=== PATIENT | female | born 1990 | race African-American/Black ===

== ENCOUNTER 2016-11-29 23:15 | Emergency (ER) | payer MEDICAID ==
[~2016-11-29] VITALS: Ht 177.8 cm; Wt 87.1 kg
[~2016-11-29 23:15] MED LIST: AUGMENTIN 875-1 EAC1 ORAL; CIPROFLOXACIN500 M2 ORAL; IBUPROFEN800 MG ORAL; KEFLEX500 MG ORAL; LEVOTHYROXINE25 MCG ORAL; NKM; PNV-OB WITH DH1 EACH PO; ZOFRAN ODT4 MG ORAL
[2016-11-30] VITALS: BP 110/62
--- NOTE | 2016-11-30 00:32 | Emergency Room Report ---
History of Present Illness General Chief Complaint: Flu Like Symptoms Source: Patient Present Illness HPI Sore throat and L ear pain 2 days. Mininal cough, not productive. Pain is 5/10 , sharp in throat and aching in body, constant. L eye with redness and some crusting 1 day. No photophobia. No treatment. Has arthritis and therefore more body pain. Daughter with viral diarrhea. No NVD, dysuria, not . Allergies: Coded Allergies: No Known Allergies (Unverified , 11/07/13) Patient History Past Medical History: see triage record Social History: Reports: smoking Social History Narrative with daughter Last Menstrual Period: november Reviewed Nursing Documentation: PMH: Agreed, PSxH: Agreed Nursing Documentation-PMH Hx Gastrointestinal Problems: Yes - ANEMIA, Hx Neurological Problems: No - rheumatoid arthritis Review of Systems All Other Systems: negative except mentioned in HPI Physical Exam Vital Signs Date Time Temp Pulse Resp B/P Pulse Ox O2 Delivery O2 Flow Rate FiO2 11/29/16 23:31 97.9 86 20 92/61 98 Room Air Sp02 EP Interpretation: reviewed, normal General Appearance: well appearing, no apparent distress, GCS 15, non-toxic Head: normocephalic, atraumatic Eyes: left eye Scleral Injection - R normal, bilateral eye PERRL ENT: moist mucus membranes, pharyngeal erythema, other - cerumen Neck: full range of motion, supple, no meningismus Respiratory: chest non-tender, lungs clear, no respiratory distress, speaking full sentences Cardiovascular #1: regular rate, rhythm Gastrointestinal: normal inspection Musculoskeletal: digits/nails normal, gait/station normal, normal range of motion, other - some muscle tenderness, upper back and extrem, no joint swelling Neurologic: alert, normal gait, grossly normal Psychiatric: mood/affect normal Skin: no rash Medical Decision Making Diagnostic Impression: Primary Impression: Viral syndrome Additional Impression: [place] eye Qualified Codes: H10.022 - Other mucopurulent conjunctivitis, left eye ER Course Patient with URI sy and pink eye. Ddx: viral, chlamydial, other bacterial source, uveitis. Diagnosis is clinical. Plan to cover with eye antibiotics even though this might be viral. Patient not toxic. No photophobia, doubt uveitis. Patient stable for outpatient observation and treatment. Last Vital Signs Date Time Temp Pulse Resp B/P Pulse Ox O2 Delivery O2 Flow Rate FiO2 11/30/16 00:41 97.9 84 22 110/62 98 Room Air Status: improved Disposition: HOME, SELF-CARE Condition: Improved Scripts Tramadol Hcl* (ULTRAM*) 50 Mg Tablet 50 MG ORAL Q6H Y for For Pain, #8 TAB 0 Refills Prov: Austin Foy M.D. 11/30/16 Sulfacetamide Sodium (BLEPH-10) 5 Ml Drops 2 DROP OP Q6HR, #10 ML Prov: Austin Foy M.D. 11/30/16 Austin Foy M.D. Nov 30, 2016 00:32
[2016-11-30] MEDS ORDERED: BLEPH-105 ML OP (00:35)
[2016-11-30] MEDS ORDERED: TRAMADOL HCL50 MG ORAL (00:35)
[2016-11-30 00:41] VITALS: BP 110/62
== END 2016-11-30 00:41 | disposition home or self-care (01) ==
LOC: EMR 23:59
DX: B34.9 Viral infection, unspecified (principal); H10.029 Other mucopurulent conjunctivitis, unspecified eye; H92.02 Otalgia, left ear; D64.9 Anemia, unspecified; M06.9 Rheumatoid arthritis, unspecified
CPT/HCPCS: 99284

== ENCOUNTER 2017-01-29 13:30 | Emergency (ER) | payer MEDICAID ==
[~2017-01-29] VITALS: Ht 177.8 cm; Wt 92.5 kg
[~2017-01-29 13:30] MED LIST changes: +BLEPH-105 ML OP; +TRAMADOL HCL50 MG ORAL
--- NOTE | 2017-01-29 14:14 | Emergency Room Report ---
History of Present Illness General Chief Complaint: Upper Respiratory Illness Source: Patient, Medical Record Present Illness HPI Patient presents with daughter as well for similar complaints Patient complains of nasal congestion cough Mild sore throat Denies any headache at this time denies any posterior neck pain however she has some tenderness in the anterior aspect Denies any vomiting or diarrhea Denies any obvious documented fevers however she states that she did feel warm Symptoms started 3 days ago however Saturday and today as it persisted Patient was concerning came to the ER Allergies: Coded Allergies: CODEINE (Verified Allergy, Unknown, 01/29/17) Patient History Past Medical History: see triage record Pertinent Family History: none Last Menstrual Period: 01/23/2017 : 3 Para: 1 Reviewed Nursing Documentation: PMH: Agreed, PSxH: Agreed Nursing Documentation-PMH Hx Gastrointestinal Problems: Yes - ANEMIA, Review of Systems All Other Systems: negative except mentioned in HPI Physical Exam Vital Signs Date Time Temp Pulse Resp B/P Pulse Ox O2 Delivery O2 Flow Rate FiO2 01/29/17 13:38 98.4 107 16 112/80 100 Room Air Sp02 EP Interpretation: reviewed, normal General Appearance: well appearing, no apparent distress Head: normocephalic, atraumatic Eyes: bilateral eye EOMI, bilateral eye PERRL ENT: hearing grossly normal, normal pharynx, TMs + canals normal, uvula midline Neck: full range of motion, supple, no meningismus, no bony tend Respiratory: lungs clear, normal breath sounds, no rhonchi, no respiratory distress, no retraction, no accessory muscle use Cardiovascular #1: normal peripheral pulses, regular rate, rhythm, no edema, no gallop, no JVD, no murmur Gastrointestinal: normal bowel sounds, non tender, soft, no mass, no organomegaly, non-distended, no guarding, no hernia, no pulsatile mass, no rebound Genitourinary: no CVA tenderness Musculoskeletal: normal inspection Neurologic: oriented x3, responsive, general farm hand III-XII nml as tested, motor strength/ tone normal, sensory intact Psychiatric: mood/affect normal Skin: normal color, no rash, warm/dry, palpation normal Lymphatic: normal inspection, no adenopathy Medical Decision Making Diagnostic Impression: Primary Impression: Urinary tract infection ER Course Patient's initial complaints appear to be clinically in line with simple URI Patient does also have autoimmune disease with lupus However does not appear septic or toxic Patient did also at the end of the conversation complain of frequency of urination and wanted her urine checked Patient does show evidence of few bacteria and therefore placed on oral antibiotics and will have close outpatient followup Labs Test 01/29/17 14:09 Urine Color Yellow Urine Appearance Slightly cloudy Urine pH 6 (4.5-8.0) Urine Specific [place] 1.015 (1.005-1.035) Urine Protein 1+ (NEGATIVE) Urine Glucose (UA) Negative (NEGATIVE) Urine Ketones Negative (NEGATIVE) Urine Occult Blood 3+ (NEGATIVE) Urine Nitrite Negative (NEGATIVE) Urine Bilirubin Negative (NEGATIVE) Urine Urobilinogen Normal MG/DL (0.0-1.0) Urine Leukocyte Esterase 3+ (NEGATIVE) Urine RBC 5-10 /HPF (0 - 2) Urine WBC 5-10 /HPF (0 - 2) Urine Squamous Epithelial Cells Few /LPF (NONE/OCC) Urine Bacteria Few /HPF (NONE) Urine Mucus Few /LPF (NONE/OCC) Urine HCG, Qualitative Negative Last Vital Signs Date Time Temp Pulse Resp B/P Pulse Ox O2 Delivery O2 Flow Rate FiO2 01/29/17 13:38 98.4 107 16 112/80 100 Room Air Status: unchanged Disposition: HOME, SELF-CARE Condition: Stable Scripts Nitrofurantoin Monohyd/M-Cryst* (MACROBID 100 MG*) 100 Mg Capsule 100 MG ORAL EVERY 12 HOURS for 7 Days, CAP Prov: PORTILLO MONTAÑO D.O. 01/29/17 Referrals: NON PHYSICIAN (PCP) Additional Instructions: Patient is provided with the discharge instructions notified to follow up with primary doctor in the next 2-3 days otherwise return to the er with any worsening symptoms. Please note that this report is being documented using [employer] technology. This can lead to erroneous entry secondary to incorrect interpretation by the dictating instrument. PORTILLO MONTAÑO D.O. January 29, 2017 14:14
[2017-01-29 14:22] LABS: APPEARANCE,URINE SLIGHTLY CLOUDY; KETONES,URINE NEGATIVE (NEGATIVE); LEUKOCYTE ESTERASE ,URINE 3+ (NEGATIVE); NITRITE,URINE NEGATIVE (NEGATIVE); PH,URINE 6 (4.5-8.0); PROTEIN,URINE 1+ (NEGATIVE); UROBILINOGEN,URINE NORMAL MG/DL (0.0-1.0)
[2017-01-29 14:33] LABS: BACTERIA,URINE FEW /HPF; MUCUS,URINE FEW /LPF (NONE/OCC); SQUAMOUS EPITHELIAL CELL,UR FEW /LPF (NONE/OCC)
[2017-01-29] MEDS ORDERED: NITROFURANTOIN100 M2 ORAL (14:59)
[2017-01-29 15:19] VITALS: BP 109/70
[2017-01-29 15:20] VITALS: BP 109/70
== END 2017-01-29 15:22 | disposition home or self-care (01) ==
LOC: EMR 14:04
DX: N39.0 Urinary tract infection, site not specified (principal); R35.0 Frequency of micturition; M32.9 Systemic lupus erythematosus, unspecified; R09.81 Nasal congestion; R05 Cough; Z88.5 Allergy status to narcotic agent; D64.9 Anemia, unspecified; Z87.19 Personal history of other diseases of the digestive system
CPT/HCPCS: 81003; 81025; 99283

== ENCOUNTER 2017-11-15 22:22 | Emergency (ER) | payer MEDICAID ==
[~2017-11-15] VITALS: Ht 177.8 cm; Wt 89.8 kg
[~2017-11-15 22:22] MED LIST changes: +NITROFURANTOIN100 M2 ORAL
[2017-11-15 22:30] VITALS: BP 107/66
[2017-11-15] MEDS ORDERED: Ketorolac 60mg Inj IM ONE (23:30)
[2017-11-15] MEDS ORDERED: IBUPROFEN600 MG ORAL (23:50)
[2017-11-15] MEDS ORDERED: LIDOCAINE700 M1 TP (23:50)
[2017-11-15 23:55] VITALS: BP 105/65
== END 2017-11-15 23:59 | disposition home or self-care (01) ==
LOC: EMR 23:56
DX: M06.9 Rheumatoid arthritis, unspecified (principal)
CPT/HCPCS: 81025; 96372; 99283

== ENCOUNTER 2019-06-13 02:14 | Emergency (ER) | payer MEDICAID ==
[~2019-06-13] VITALS: Ht 177.8 cm; Wt 83.9 kg
[~2019-06-13 02:14] MED LIST changes: +IBUPROFEN600 MG ORAL; +LIDOCAINE700 M1 TP
--- NOTE | 2019-06-13 02:34 | Emergency Room Report ---
History of Present Illness General Chief Complaint: Female Urogenital Problems Source: Patient Present Illness HPI Patient presents with complaints of back cramping lower back region She reports that 2 days ago she had a bowel movement with a trace of red blood Patient reports recent UTI diagnosis Patient reports that she was at the same hospital which diagnosed her with a UTI in [place] earlier this evening Reports that she had blood test and urine test however did not have any x-rays or imaging And presents here for further evaluation patient reports recent general weakness Denies any chest pain or shortness of breath denies any vomiting or diarrhea Allergies: Coded Allergies: CODEINE (Verified Allergy, Unknown, 01/29/17) LATEX (Verified Allergy, Unknown, 06/13/19) Patient History Past Medical History: see triage record Last Menstrual Period: 06/04/2019 Now: No Reviewed Nursing Documentation: PMH: Agreed; PSxH: Agreed Nursing Documentation-PMH Hx Gastrointestinal Problems: Yes - ANEMIA, Review of Systems All Other Systems: negative except mentioned in HPI Physical Exam Vital Signs Date Time Temp Pulse Resp B/P (MAP) Pulse Ox O2 Delivery O2 Flow Rate FiO2 06/13/19 02:16 98.4 90 16 106/73 (84) 97 Room Air Sp02 EP Interpretation: reviewed, normal General Appearance: well appearing, no apparent distress Head: normocephalic, atraumatic Eyes: bilateral eye PERRL, bilateral eye EOMI ENT: hearing grossly normal, normal pharynx, TMs + canals normal, uvula midline Neck: full range of motion, supple, no meningismus, no bony tend Respiratory: lungs clear, normal breath sounds, no rhonchi, no respiratory distress, no retraction, no accessory muscle use Cardiovascular #1: normal peripheral pulses, regular rate, rhythm, no edema, no gallop, no JVD, no murmur Gastrointestinal: normal bowel sounds, non tender, soft, no mass, no organomegaly, non-distended, no guarding, no hernia, no pulsatile mass, no rebound Genitourinary: no CVA tenderness Musculoskeletal: normal inspection Neurologic: oriented x3, responsive, advanced manufacturing vice president III-XII nml as tested, motor strength/ tone normal, sensory intact Psychiatric: mood/affect normal Skin: no rash Lymphatic: normal inspection, no adenopathy Medical Decision Making Diagnostic Impression: Primary Impression: Rectal bleed Additional Impression: Back pain ER Course Multiple differentials including but not limited to internal bleeding, hemorrhoids, menstrual cramps all considered Including UTI and bladder discomfort Patient's urine sample does not show any convincing bladder infection hemoglobin is the same as it was in 2014 Patient remains hemodynamically stable At this time stable for close outpatient follow-up Labs Test 06/13/19 02:30 06/13/19 02:40 Urine Color Yellow Urine Appearance Clear Urine pH 5 (4.5-8.0) Urine Specific [place] 1.025 (1.005-1.035) Urine Protein 1+ (NEGATIVE) Urine Glucose (UA) Negative (NEGATIVE) Urine Ketones Negative (NEGATIVE) Urine Blood 1+ (NEGATIVE) Urine Nitrite Negative (NEGATIVE) Urine Bilirubin Negative (NEGATIVE) Urine Urobilinogen 1 MG/DL (0.0-1.0) Urine Leukocyte Esterase 2+ (NEGATIVE) Urine RBC 0-2 /HPF (0 - 2) Urine WBC 2-4 /HPF (0 - 2) Urine Squamous Epithelial Cells Few /LPF (NONE/OCC) Urine Bacteria Few /HPF (NONE) Urine Mucus Few /LPF (NONE/OCC) Urine HCG, Qualitative Negative (NEGATIVE) White Blood Count 4.5 K/UL (4.8-10.8) Red Blood Count 4.08 M/UL (4.20-5.40) Hemoglobin 11.6 G/DL (12.0-16.0) Hematocrit 34.9 % (37.0-47.0) Mean Corpuscular Volume 85 FL (80-99) Mean Corpuscular Hemoglobin 28.5 PG (27.0-31.0) Mean Corpuscular Hemoglobin Concent 33.3 G/DL (32.0-36.0) Red Cell Distribution Width 11.5 % (11.6-14.8) Platelet Count 294 K/UL (150-450) Mean Platelet Volume 6.1 FL (6.5-10.1) Neutrophils (%) (Auto) 52.8 % (45.0-75.0) Lymphocytes (%) (Auto) 37.8 % (20.0-45.0) Monocytes (%) (Auto) 8.0 % (1.0-10.0) Eosinophils (%) (Auto) 0.8 % (0.0-3.0) Basophils (%) (Auto) 0.7 % (0.0-2.0) Sodium Level 140 MMOL/L (136-145) Potassium Level 3.7 MMOL/L (3.5-5.1) Chloride Level 104 MMOL/L (98-107) Carbon Dioxide Level 26 MMOL/L (21-32) Anion Gap 11 mmol/L (5-15) Blood Urea Nitrogen 15 mg/dL (7-18) Creatinine 0.8 MG/DL (0.55-1.30) Estimat Glomerular Filtration Rate > 60 mL/min (>60) Glucose Level 130 MG/DL (74-106) Calcium Level 9.5 MG/DL (8.5-10.1) Last Vital Signs Date Time Temp Pulse Resp B/P (MAP) Pulse Ox O2 Delivery O2 Flow Rate FiO2 06/13/19 02:16 98.4 90 16 106/73 (84) 97 Room Air Status: improved Disposition: HOME, SELF-CARE Condition: Improved Scripts Lidocaine (RECTICARE) 30 Gm Cream..g. 1 INCH TP BID for 7 Days, GM Prov: Ezequiel Mayes DO 06/13/19 Docusate Sodium* (COLACE*) 100 Mg Capsule 100 MG ORAL THREE TIMES A DAY, #30 CAP Prov: Ezequiel Mayes DO 06/13/19 Additional Instructions: Patient is provided with the discharge instructions notified to follow up with primary doctor in the next 2-3 days otherwise return to the er with any worsening symptoms. Please note that this report is being documented using [employer] technology. This can lead to erroneous entry secondary to incorrect interpretation by the dictating instrument. Ezeuqiel Mayes DO Jun 13, 2019 02:34
[2019-06-13 02:35] LABS: APPEARANCE,URINE CLEAR; BILIRUBIN, URINE NEGATIVE (NEGATIVE); GLUCOSE, URINE (UA) NEGATIVE (NEGATIVE); KETONES,URINE NEGATIVE (NEGATIVE); LEUKOCYTE ESTERASE ,URINE 2+ (NEGATIVE); NITRITE,URINE NEGATIVE (NEGATIVE); PH,URINE 5 (4.5-8.0); PROTEIN,URINE 1+ (NEGATIVE); UROBILINOGEN,URINE 1 MG/DL (0.0-1.0)
[2019-06-13 02:36] LABS: COLOR,URINE YELLOW
--- NOTE | 2019-06-13 02:44 | NUR ---
ED Nurse Note: Pt ambulated to ED from home c/o abdominal pain and bright red blood when defecating x3days. Pt denies trauma or straining when having a BM.
[2019-06-13 02:45] VITALS: BP 106/73
[2019-06-13 02:48] LABS: BASOPHILS % (AUTO) 0.7 % (0.0-2.0); EOSINOPHILS % (AUTO) 0.8 % (0.0-3.0); HEMATOCRIT 34.9 % (37.0-47.0); HEMOGLOBIN 11.6 G/DL (12.0-16.0); LYMPHOCYTES % (AUTO) 37.8 % (20.0-45.0); MEAN CORPUSCULAR VOLUME 85 FL (80-99); NEUTROPHILS % (AUTO) 52.8 % (45.0-75.0); PLATELET COUNT 294 K/UL (150-450); RED BLOOD COUNT 4.08 M/UL (4.20-5.40); RED CELL DISTRIBUTION WIDTH 11.5 % (11.6-14.8); WHITE BLOOD COUNT 4.5 K/UL (4.8-10.8)
[2019-06-13 02:56] LABS: ANION GAP 11 mmol/L (5-15); BLOOD UREA NITROGEN 15 mg/dL (7-18); CALCIUM 9.5 MG/DL (8.5-10.1); CARBON DIOXIDE 26 MMOL/L (21-32); CHLORIDE 104 MMOL/L (98-107); CREATININE 0.8 MG/DL (0.55-1.30); POTASSIUM 3.7 MMOL/L (3.5-5.1); SODIUM 140 MMOL/L (136-145)
[2019-06-13] MEDS ORDERED: RECTICARE30 GM TP (03:21)
[2019-06-13] MEDS ORDERED: COLACE100 MG ORAL (03:21)
[2019-06-13 03:25] VITALS: BP 106/73
--- NOTE | 2019-06-13 03:25 | NUR ---
ER DISCHARGE NOTE: Patient is cleared to be discharged per ERMD, pt is aox4, on room air, with stable vital signs. pt was given dc and prescription instructions, pt was able to verbalize understanding, pt id band removed. pt is able to ambulate with steady gait. pt took all belongings.
== END 2019-06-13 03:25 | disposition home or self-care (01) ==
LOC: EMR 02:28
DX: M54.9 Dorsalgia, unspecified (principal); K62.5 Hemorrhage of anus and rectum; Z88.6 Allergy status to analgesic agent; Z91.040 Latex allergy status
CPT/HCPCS: 36415; 80048; 81003; 81025; 85025; Z7502; 99284

== ENCOUNTER 2019-08-23 00:08 | Emergency (ER) | payer MEDICAID ==
[~2019-08-23] VITALS: Ht 177.8 cm; Wt 81.6 kg
[~2019-08-23 00:08] MED LIST changes: +COLACE100 MG ORAL; +RECTICARE30 GM TP
[2019-08-23 00:30] VITALS: BP 120/74
--- NOTE | 2019-08-23 00:39 | Emergency Room Report ---
History of Present Illness General Chief Complaint: Pain Source: Patient Present Illness HPI Is a 28-year-old female with a history of rheumatoid arthritis. She presents with chief complaint of her rheumatoid arthritis flareup. Onset for about a week. Better with ibuprofen 800 mg. She is out of it. She is tried over-the- counter medication is not helping. Pain is mostly to her lower extremity joints. Also in her upper extremity. Pain is 8 out of 10. Worse with walking. Worse with movement. She is been on steroid in the past and is actually makes things worse. Denies any other complaint. No fever chills but no nausea no vomiting. Similar symptoms in the past. Allergies: Coded Allergies: CODEINE (Verified Allergy, Unknown, 01/29/17) LATEX (Verified Allergy, Unknown, 06/13/19) Patient History Past Medical History: see triage record, old chart reviewed Past Surgical History: other Pertinent Family History: none Social History: Denies: smoking Last Menstrual Period: 08/01/19 Now: No Immunizations: other Reviewed Nursing Documentation: PMH: Agreed; PSxH: Agreed Nursing Documentation-PMH Past Medical History: No History, Except For Hx Gastrointestinal Problems: Yes - ANEMIA, Review of Systems Eye: Denies: eye pain, blurred vision ENT: Denies: ear pain, nose congestion, throat swelling Respiratory: Denies: cough, shortness of breath Cardiovascular: Denies: chest pain, palpitations Gastrointestinal: Denies: abdominal pain, diarrhea, nausea, vomiting Musculoskeletal: Reports: joint pain; Denies: back pain Skin: Denies: rash Neurological: Denies: headache, numbness Endocrine: Denies: increased thirst, increased urine Hematologic/Lymphatic: Denies: easy bruising All Other Systems: negative except mentioned in HPI Physical Exam Vital Signs Date Time Temp Pulse Resp B/P (MAP) Pulse Ox O2 Delivery O2 Flow Rate FiO2 08/23/19 00:21 97.7 86 14 114/69 (84) 99 Room Air Vitals normal Sp02 EP Interpretation: reviewed, normal General Appearance: well appearing, no apparent distress, alert Head: normocephalic, atraumatic Eyes: bilateral eye PERRL, bilateral eye EOMI ENT: hearing grossly normal, normal pharynx Neck: full range of motion, supple, no meningismus Respiratory: chest non-tender, lungs clear, normal breath sounds Cardiovascular #1: regular rate, rhythm, no murmur Gastrointestinal: normal bowel sounds, non tender, no mass, no organomegaly, no bruit, non-distended Musculoskeletal: back normal, tender - Over joints mostly knees. Psychiatric: mood/affect normal Medical Decision Making Diagnostic Impression: Primary Impression: Rheumatoid arthritis flare ER Course Patient with a rheumatoid arthritis flare. No evidence of any septic joint. Patient does not want steroid. Will discharge home. Last Vital Signs Date Time Temp Pulse Resp B/P (MAP) Pulse Ox O2 Delivery O2 Flow Rate FiO2 08/23/19 00:21 97.7 86 14 114/69 (84) 99 Room Air Status: improved Disposition: HOME, SELF-CARE Condition: Stable Scripts Hydrocodone Bit/Acetaminophen 5-325* (NORCO 5-325*) 1 Each Tablet 1 TAB ORAL Q6H PRN for For Pain, #20 TAB 0 Refills Prov: Frank Truong MD 08/23/19 Ibuprofen (Ibuprofen) 800 Mg Tablet 800 MG PO Q6HR, #60 TAB Prov: Frank Truong MD 08/23/19 Referrals: NOT CHOSEN IPA/,REFERRING (PCP) Additional Instructions: Follow up your doctor in 7 days. Return if symptoms worsen. Frank Truong MD Aug 23, 2019 00:39
[2019-08-23] MEDS ORDERED: Ketorolac 60mg Inj IM ONE (00:45)
[2019-08-23] MEDS ORDERED: NORCO 5-325 TA1 EACH ORAL (01:07)
[2019-08-23] MEDS ORDERED: IBUPROFEN800 M1 PO (01:07)
[2019-08-23 01:10] VITALS: BP 113/55
== END 2019-08-23 01:10 | disposition home or self-care (01) ==
LOC: EMR 00:30
DX: M06.9 Rheumatoid arthritis, unspecified (principal); Z88.6 Allergy status to analgesic agent; Z91.040 Latex allergy status
CPT/HCPCS: 96372; Z7502; 99283

== ENCOUNTER 2020-05-04 18:51 | Emergency (ER) | payer MEDICAID ==
[~2020-05-04] VITALS: Ht 177.8 cm; Wt 93.4 kg
[~2020-05-04 18:51] MED LIST changes: +IBUPROFEN800 M1 PO; +NORCO 5-325 TA1 EACH ORAL
--- NOTE | 2020-05-04 19:17 | NUR ---
ED Nurse Note: Patient walked into the ED with c/o anxiety. Patient states she is experiencing SOB, back pain and pelvic pain during panic attacks that lasts 30 mins to 1 hour. Anxiety started 2 weeks ago. Patient is AAOX4 and ambulatory. Placed on monitor bed
--- NOTE | 2020-05-04 19:18 | NUR ---
ED Nurse Note: ERMD at bedside
[2020-05-04 19:20] VITALS: BP 109/76
--- NOTE | 2020-05-04 19:24 | Emergency Room Report ---
History of Present Illness General Chief Complaint: General Complaint Source: Patient Present Illness HPI Patient presents with 2weeks suprapubic pain, right upper quadrant pain chest pain is intermittent. She gets panic attacks when the pain hits. She has a gallstone diet causes problems with pain. Usually it is right upper quadrant and not suprapubic. She took Plan B 3 weeks ago. Does not believe she is at this time. She rates the pain in the right upper quadrant 10/10. She denies any hemoptysis she vomited today. She been eating some pink strawberry material and it came back up red but did not taste metallic and she does not think it was blood. She denies dysuria. She is been under a lot of stress in the last 2 weeks and this contributes to what she feels she has recurrent panic attacks with this. The patient has rheumatoid and lupus and is taking hydroxychloroquine, prednisone 10 mg, omeprazole. She has chronic pain in her left ankle and wears a support there. No sore throat, chest pain, palpitations, diarrhea, melena, shortness of breath , rashes, visual changes, dizziness, headache. Allergies: Coded Allergies: CODEINE (Verified Allergy, Unknown, 01/29/17) LATEX (Verified Allergy, Unknown, 06/13/19) COVID-19 Screening Contact w/high risk pt: No Experienced COVID-19 symptoms?: No COVID-19 Testing performed SPICE MIXER: No Patient History Past Medical History: see triage record Social History: Denies: smoking Social History Narrative From home Last Menstrual Period: 04/22/20 Reviewed Nursing Documentation: PMH: Agreed; PSxH: Agreed Nursing Documentation-PMH Past Medical History: No History, Except For Hx Gastrointestinal Problems: Yes - ANEMIA, Review of Systems All Other Systems: negative except mentioned in HPI Physical Exam Vital Signs Date Time Temp Pulse Resp B/P (MAP) Pulse Ox O2 Delivery O2 Flow Rate FiO2 05/04/20 19:03 98.4 84 17 109/76 (87) 98 Room Air Sp02 EP Interpretation: reviewed, normal General Appearance: well appearing, no apparent distress, GCS 15 Head: normocephalic Eyes: bilateral eye normal inspection, bilateral eye PERRL, bilateral eye EOMI ENT: moist mucus membranes Neck: supple Respiratory: lungs clear, normal breath sounds Cardiovascular #1: regular rate, rhythm Cardiovascular #2: 2+ radial (R) Gastrointestinal: normal inspection, normal bowel sounds, no mass, non- distended, no guarding, no rebound, tenderness - Suprapubic and right upper right upper quadrant Genitourinary: no CVA tenderness Musculoskeletal: back normal, normal range of motion, no calf tenderness, gait/ station normal, other - brace left ankle Neurologic: alert, oriented x3, grossly normal Psychiatric: mood/affect normal Skin: no rash, warm/dry Medical Decision Making Diagnostic Impression: Primary Impression: Abdominal pain Qualified Codes: R10.9 - Unspecified abdominal pain Additional Impressions: UTI (urinary tract infection) Qualified Codes: N39.0 - Urinary tract infection, site not specified Situational stress Systemic lupus erythematosus Qualified Codes: M32.9 - Systemic lupus erythematosus, unspecified ER Course Patient with lupus and rheumatoid presents with suprapubic, right upper quadrant and chest pain. Differential includes pulmonary embolus, cholelithiasis, gastritis, peptic ulcer disease, ectopic , urinary tract infection, pyelonephritis, lupus flare amongst others. Evaluation with labs, chest x-ray. Patient treated with Reglan, Benadryl and morphine. Initial consideration of Toradol not appropriate as the patient is taking prednisone. Consideration of ultrasound or CT of the abdomen if labs are abnormal. Serial abdominal exams indicated. Of concern the patient is on multiple immune suppressant medications. Complex patient. Labs with normal white count. CMP unremarkable. Urinalysis with pyuria. Chest x-ray clear. Rocephin administered IV. Patient improved with treatment. Repeat abdominal exam benign. Discussed findings with patient and treatment plan. The patient reports that the stress that she is under is due to a recent relationship. She feels she is handling this well and feels safe. Patient stable for outpatient observation and treatment. Laboratory Tests Test 05/04/20 19:45 White Blood Count 5.2 K/UL (4.8-10.8) Red Blood Count 4.00 M/UL (4.20-5.40) L Hemoglobin 11.2 G/DL (12.0-16.0) L Hematocrit 34.7 % (37.0-47.0) L Mean Corpuscular Volume 87 FL (80-99) Mean Corpuscular Hemoglobin 28.1 PG (27.0-31.0) Mean Corpuscular Hemoglobin Concent 32.4 G/DL (32.0-36.0) Red Cell Distribution Width 14.9 % (11.6-14.8) H Platelet Count 282 K/UL (150-450) Mean Platelet Volume 6.5 FL (6.5-10.1) Neutrophils (%) (Auto) 44.5 % (45.0-75.0) L Lymphocytes (%) (Auto) 45.7 % (20.0-45.0) H Monocytes (%) (Auto) 8.2 % (1.0-10.0) Eosinophils (%) (Auto) 0.3 % (0.0-3.0) Basophils (%) (Auto) 1.3 % (0.0-2.0) Prothrombin Time 11.2 SEC (9.30-11.50) Prothrombin Time INR 1.0 (0.9-1.1) Activated Partial Thromboplast Time 26 SEC (23-33) Urine Color Yellow Urine Appearance Very cloudy Urine pH 5 (4.5-8.0) Urine Specific Pioneer 1.025 (1.005-1.035) Urine Protein 2+ (NEGATIVE) H Urine Glucose (UA) Negative (NEGATIVE) Urine Ketones 1+ (NEGATIVE) H Urine Blood 1+ (NEGATIVE) H Urine Nitrite Negative (NEGATIVE) Urine Bilirubin Negative (NEGATIVE) Urine Urobilinogen 1 MG/DL (0.0-1.0) H Urine Leukocyte Esterase 3+ (NEGATIVE) H Urine RBC 2-4 /HPF (0 - 2) H Urine WBC 20-30 /HPF (0 - 2) H Urine Squamous Epithelial Cells Many /LPF (NONE/OCC) H Urine Bacteria Many /HPF (NONE) H Urine HCG, Qualitative Negative (NEGATIVE) Sodium Level 138 MMOL/L (136-145) Potassium Level 4.0 MMOL/L (3.5-5.1) Chloride Level 108 MMOL/L (98-107) H Carbon Dioxide Level 25 MMOL/L (21-32) Anion Gap 5 mmol/L (5-15) Blood Urea Nitrogen 14 mg/dL (7-18) Creatinine 0.9 MG/DL (0.55-1.30) Estimated Glomerular Filtration Rate > 60 mL/min (>60) Glucose Level 88 MG/DL (74-106) Calcium Level 8.8 MG/DL (8.5-10.1) Total Bilirubin 0.4 MG/DL (0.2-1.0) Aspartate Amino Transferase (AST) 15 U/L (15-37) Alanine Aminotransferase (ALT) 23 U/L (12-78) Alkaline Phosphatase 83 U/L (46-116) Total Protein 7.3 G/DL (6.4-8.2) Albumin 3.8 G/DL (3.4-5.0) Globulin 3.5 g/dL Albumin/Globulin Ratio 1.1 (1.0-2.7) Lipase 112 U/L (73-393) EKG Diagnostic Results Rate: normal Rhythm: NSR ST Segments: no acute changes - Right axis deviation Rhythm Strip Diag. Results EP Interpretation: yes Rhythm: NSR, no PVC's, no ectopy Chest X-Ray Diagnostic Results Chest X-Ray Diagnostic Results : Chest X-Ray Ordered: Yes # of Views/Limited/Complete: 1 View Indication: Other EP Interpretation: Yes Interpretation: no consolidation, no effusion, no pneumothorax, other - Suggestion of possible dextrocardia Impression: No acute disease Electronically Signed by: Electronically signed by Austin Foy MD Last Vital Signs Date Time Temp Pulse Resp B/P (MAP) Pulse Ox O2 Delivery O2 Flow Rate FiO2 05/04/20 20:03 98.4 05/04/20 19:20 84 17 Room Air 05/04/20 19:20 109/76 98 Status: improved Disposition: HOME, SELF-CARE Condition: Improved Scripts Hydroxyzine Pamoate (VISTARIL) 25 Mg Capsule 25 MG PO Q8HR PRN for anxiety, #10 CAP Prov: Austin Foy MD 05/04/20 Acetaminophen (Tylenol) 325 Mg Tablet 650 MG ORAL Q6H PRN for Prn Pain/Headache/Temp > 101, #16 TAB 0 Refills Prov: Austin Foy MD 05/04/20 Nitrofurantoin Monohyd/M-Cryst* (MACROBID 100 MG*) 100 Mg Capsule 100 MG ORAL EVERY 12 HOURS, #14 CAP Prov: Austin Foy MD 05/04/20 Hydrocodone Bit/Acetaminophen 5-325* (NORCO 5-325 TABLET*) 1 Each Tablet 1 TAB ORAL Q6H PRN for FOR PAIN, #8 TAB 0 Refills Prov: Austin Foy MD 05/04/20 Austin Foy MD May 04, 2020 19:24
[2020-05-04] MEDS ORDERED: Ketorolac 30mg Inj IV ONE (19:30)
[2020-05-04] MEDS ORDERED: DiphenhydrAMINE 50mg/ml Inj IVP ONE (19:30)
[2020-05-04] MEDS ORDERED: Metoclopramide 10mg/2ml Inj IVP ONE (19:30)
[2020-05-04] MEDS ORDERED: Morphine Sulfate 4mg/ml Inj (IV USE ONLY) IVP ONE (19:30)
--- NOTE | 2020-05-04 19:45 | NUR ---
ED Nurse Note: Blood and urine specimen sent to lab for workup
[2020-05-04 19:57] LABS: BASOPHILS % (AUTO) 1.3 % (0.0-2.0); EOSINOPHILS % (AUTO) 0.3 % (0.0-3.0); HEMATOCRIT 34.7 % (37.0-47.0); HEMOGLOBIN 11.2 G/DL (12.0-16.0); LYMPHOCYTES % (AUTO) 45.7 % (20.0-45.0); MEAN CORPUSCULAR VOLUME 87 FL (80-99); MONOCYTES % (AUTO) 8.2 % (1.0-10.0); NEUTROPHILS % (AUTO) 44.5 % (45.0-75.0); PLATELET COUNT 282 K/UL (150-450); RED CELL DISTRIBUTION WIDTH 14.9 % (11.6-14.8); WHITE BLOOD COUNT 5.2 K/UL (4.8-10.8)
[2020-05-04 19:58] LABS: APPEARANCE,URINE VERY CLOUDY; BILIRUBIN, URINE NEGATIVE (NEGATIVE); COLOR,URINE YELLOW; GLUCOSE, URINE (UA) NEGATIVE (NEGATIVE); KETONES,URINE 1+ (NEGATIVE); LEUKOCYTE ESTERASE ,URINE 3+ (NEGATIVE); NITRITE,URINE NEGATIVE (NEGATIVE); PH,URINE 5 (4.5-8.0); PROTEIN,URINE 2+ (NEGATIVE); UROBILINOGEN,URINE 1 MG/DL (0.0-1.0)
[2020-05-04 20:07] LABS: ANION GAP 5 mmol/L (5-15); BLOOD UREA NITROGEN 14 mg/dL (7-18); CALCIUM 8.8 MG/DL (8.5-10.1); CARBON DIOXIDE 25 MMOL/L (21-32); CHLORIDE 108 MMOL/L (98-107); CREATININE 0.9 MG/DL (0.55-1.30); SODIUM 138 MMOL/L (136-145)
[2020-05-04 20:11] LABS: ALANINE AMINOTRANSFERASE 23 U/L (12-78); ALBUMIN 3.8 G/DL (3.4-5.0); ALBUMIN/GLOBULIN RATIO 1.1 (1.0-2.7); ALKALINE PHOSPHATASE 83 U/L (46-116); ASPARTATE AMINO TRANSFERASE 15 U/L (15-37); BILIRUBIN,TOTAL 0.4 MG/DL (0.2-1.0)
[2020-05-04] MEDS ORDERED: cefTRIAXone 1 GM in NS 55 ML IVPB ONE (20:45)
[2020-05-04 21:30] VITALS: BP 124/87
--- NOTE | 2020-05-04 21:30 | NUR ---
ER DISCHARGE NOTE: Patient is cleared to be discharged per ERMD, pt is aox4, on room air, with stable vital signs. pt was given dc and prescription instructions, pt was able to verbalize understanding, pt id band and iv site removed without complications. pt is able to ambulate with steady gait. pt took all belongings.
[2020-05-04] MEDS ORDERED: NORCO 5-325 TA1 EAC1 ORAL (22:11)
[2020-05-04] MEDS ORDERED: TYLENOL325 MG ORAL (22:11)
[2020-05-04] MEDS ORDERED: NITROFURANTOIN100 M2 ORAL (22:11)
[2020-05-04] MEDS ORDERED: VISTARIL25 M1 PO (22:11)
--- NOTE | 2020-05-05 10:42 | Diagnostic Imaging Report ---
Indication: Reason For Exam: ABD PAIN Technique: Single AP view of the chest. Comparison: None. Findings: The cardiomediastinal silhouette is rotated, limiting evaluation. There is prominence of the aortic arch. No airspace consolidation, pneumothorax, or pleural effusion. No acute osseous abnormality. IMPRESSION: 1. Rightward rotation of the cardiac mediastinal silhouette with prominent aortic arch. This may be congenital or due to projection. Recommend repeat examination with PA and lateral radiograph. 2. No airspace consolidation.
== END 2020-05-04 21:30 | disposition home or self-care (01) ==
LOC: EMR 19:27
DX: R10.11 Right upper quadrant pain (principal); N39.0 Urinary tract infection, site not specified; M32.9 Systemic lupus erythematosus, unspecified; F43.9 Reaction to severe stress, unspecified; Z88.6 Allergy status to analgesic agent; Z91.040 Latex allergy status; R07.9 Chest pain, unspecified
CPT/HCPCS: 36415; 71045; 80053; 81003; 81025; 83690; 85025; 85610; 85730; 87086; 93005; 96361; 96365; 96375; J0696; J1200; J2270; J2765; S0028; Z7502; 99284; J7030

== ENCOUNTER 2020-07-17 00:15 | Emergency (ER) | payer MEDICAID ==
[~2020-07-17] VITALS: Ht 177.8 cm; Wt 90.7 kg
[~2020-07-17 00:15] MED LIST changes: +NORCO 5-325 TA1 EAC1 ORAL; +TYLENOL325 MG ORAL; +VISTARIL25 M1 PO
--- NOTE | 2020-07-17 00:27 | NUR ---
ED Nurse Note: Pt ambulated to ED from home c/o 06/25 bilateral leg pain, hx of RA, unrelieved by ibuprofen. Pt is A&OX4, VSS.
[2020-07-17] MEDS ORDERED: HYDROmorphone 1mg/ml Carpuject IM ONE (00:45)
[2020-07-17] MEDS ORDERED: HYDROCODON-ACE1 EA15 ORAL (00:46)
[2020-07-17] MEDS ORDERED: PREDNISONE20 MG ORAL (00:46)
--- NOTE | 2020-07-17 00:47 | Emergency Room Report ---
History of Present Illness General Chief Complaint: Pain Source: Patient, Medical Record Present Illness HPI This is a 29-year-old female with a history of rheumatoid arthritis. She presents with chief complaint of joint pain and flareup from her rheumatoid arthritis. Onset about a week. Normally she take ibuprofen and steroid. She said is not helping. Pain is mostly to the joint of the lower extremity. Pain is 8 out of 10. Has increasing swelling. No fever chills but no nausea no vomiting. Similar symptoms in the past. She is seeing a printing supplies sales representative. She has an issue with insurance for prescription for a newer medication and immune modulators. Allergies: Coded Allergies: CODEINE (Verified Allergy, Unknown, 01/29/17) LATEX (Verified Allergy, Unknown, 06/13/19) COVID-19 Screening Contact w/high risk pt: No Experienced COVID-19 symptoms?: No COVID-19 Testing performed WIND TURBINE SERVICE TECHNICIAN: No Patient History Past Medical History: see triage record, old chart reviewed Past Surgical History: other Pertinent Family History: none Social History: Denies: smoking Last Menstrual Period: 05/24/2020 Now: No : 3 Para: 1 Immunizations: other Reviewed Nursing Documentation: PMH: Agreed; PSxH: Agreed Nursing Documentation-PMH Past Medical History: No History, Except For Hx Gastrointestinal Problems: Yes - ANEMIA, Review of Systems Eye: Denies: eye pain, blurred vision ENT: Denies: ear pain, nose congestion, throat swelling Respiratory: Denies: cough, shortness of breath Cardiovascular: Denies: chest pain, palpitations Gastrointestinal: Denies: abdominal pain, diarrhea, nausea, vomiting Musculoskeletal: Reports: joint pain, joint swelling; Denies: back pain Skin: Denies: rash Neurological: Denies: headache, numbness Endocrine: Denies: increased thirst, increased urine Hematologic/Lymphatic: Denies: easy bruising All Other Systems: negative except mentioned in HPI Physical Exam Vital Signs Date Time Temp Pulse Resp B/P (MAP) Pulse Ox O2 Delivery O2 Flow Rate FiO2 07/17/20 00:15 98.1 94 16 96/64 (75) 98 Room Air Vitals unremarkable Sp02 EP Interpretation: reviewed, normal General Appearance: well appearing, no apparent distress, alert Head: normocephalic, atraumatic Eyes: bilateral eye PERRL, bilateral eye EOMI ENT: hearing grossly normal, normal pharynx Neck: full range of motion, supple, no meningismus Respiratory: chest non-tender, lungs clear, normal breath sounds Cardiovascular #1: regular rate, rhythm, no murmur Gastrointestinal: normal bowel sounds, non tender, no mass, no organomegaly, no bruit, non-distended Musculoskeletal: back normal, normal range of motion, gait/station normal, other - Mild swelling to her knees and ankles. No redness. Psychiatric: mood/affect normal Medical Decision Making Diagnostic Impression: Primary Impression: Rheumatoid arthritis flare ER Course This patient presents with a rheumatoid arthritis flare. No evidence of any septic joint or other infection. Will discharge home. Last Vital Signs Date Time Temp Pulse Resp B/P (MAP) Pulse Ox O2 Delivery O2 Flow Rate FiO2 07/17/20 00:15 98.1 94 16 96/64 (75) 98 Room Air Status: improved Disposition: HOME, SELF-CARE Condition: Stable Scripts Prednisone* (PREDNISONE*) 20 Mg Tablet 40 MG ORAL DAILY, #12 TAB Prov: Frank Truong MD 07/17/20 Hydrocodone/Acetaminophen 5-325* (HYDROCODONE/ACETAMINOPHEN 5-325*) 1 Each Tablet 1 TAB ORAL Q6H PRN for For Pain, #20 TAB 0 Refills Prov: Frank Truong MD 07/17/20 Referrals: NON PHYSICIAN (PCP) Additional Instructions: Follow-up with your DrEtelvina In 7 days. Return if symptoms worsen. Frank Truong MD Jul 17, 2020 00:47
[2020-07-17 00:59] VITALS: BP 96/64
[2020-07-17 01:15] VITALS: BP 96/64
== END 2020-07-17 01:15 | disposition home or self-care (01) ==
LOC: EMR 00:40
DX: M06.9 Rheumatoid arthritis, unspecified (principal); Z88.6 Allergy status to analgesic agent; Z91.040 Latex allergy status
CPT/HCPCS: 96372; J1170; J7512; Z7502; 99283

== ENCOUNTER 2020-08-24 20:46 | Emergency (ER) | payer MEDICAID ==
[~2020-08-24] VITALS: Ht 177.8 cm; Wt 85.3 kg
[~2020-08-24 20:46] MED LIST changes: +HYDROCODON-ACE1 EA15 ORAL; +PREDNISONE20 MG ORAL
--- NOTE | 2020-08-24 20:55 | NUR ---
ED Nurse Note: Pt AMBULATED TO ED FROM HOME, PT REPORTING 10/10 PAIN IN R FOREARM AFTER USING A DOOR HANDLE SHORTLY BEFORE, PT IS A&ox4, vss
[2020-08-24] MEDS ORDERED: PREDNISONE10 MG ORAL (20:59)
[2020-08-24] MEDS ORDERED: METHOTREXATE2.5 MG PO (20:59)
[2020-08-24] MEDS ORDERED: HYDROcodone/Acetamin 5/325 tab ORAL ONE (21:00)
--- NOTE | 2020-08-24 21:02 | Emergency Room Report ---
History of Present Illness General Chief Complaint: Upper Extremity Injury Source: Patient Present Illness HPI Patient is a 29-year-old female presents for increased right-sided wrist pain. Onset of symptoms approximate 1 hour prior to arrival after recent injury. Patient reports having fallen and hyperflexed her wrist. Denies any other locations of injury. Right-hand dominant. 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 Had increased pain with movement. Prior history of rheumatoid arthritis for which he takes Plaquenil, methotrexate, ibuprofen, prednisone 10 mg. Allergies: Coded Allergies: CODEINE (Verified Allergy, Unknown, 01/29/17) LATEX (Verified Allergy, Unknown, 06/13/19) COVID-19 Screening Contact w/high risk pt: No Experienced COVID-19 symptoms?: No COVID-19 Testing performed BACKUP ADMINISTRATIVE COORDINATOR: No Patient History Past Medical History: see triage record Last Menstrual Period: 08/20/2020 Now: No : 3 Para: 1 Reviewed Nursing Documentation: PMH: Agreed; PSxH: Agreed Nursing Documentation-PMH Past Medical History: No History, Except For Hx Gastrointestinal Problems: Yes - ANEMIA, Review of Systems All Other Systems: negative except mentioned in HPI Physical Exam Vital Signs Date Time Temp Pulse Resp B/P (MAP) Pulse Ox O2 Delivery O2 Flow Rate FiO2 08/24/20 20:53 98.1 88 18 96/63 (74) 99 Room Air General Appearance: well appearing, no apparent distress, GCS 15 Head: normocephalic, atraumatic ENT: hearing grossly normal, normal voice Neck: full range of motion, supple Respiratory: no respiratory distress, speaking full sentences Cardiovascular #1: normal inspection, normal peripheral pulses, regular rate, rhythm Gastrointestinal: normal inspection, non tender, soft Musculoskeletal: other - Right wrist swelling and tenderness, no deformity noted Neurologic: alert, motor strength/tone normal, reformatory attendant III-XII nml as tested, oriented x3, normal gait Psychiatric: normal inspection, judgement/insight normal, mood/affect normal Skin: no rash Medical Decision Making Diagnostic Impression: Primary Impression: Wrist pain, right ER Course Patient presented for right-sided wrist pain. Differential diagnosis include was not limited to fracture, contusion, sprain, dislocation among others. Because of patient's complexity of imaging studies were ordered. Present for wrist pain. Differential diagnosis include was not limited to ligament injury, fracture, arthritis, among others. X-ray ridging was ordered due to patient's recent trauma. X-ray imaging read by radiology showed degenerative changes without evident acute fracture. Patient was placed in a removable splint. She was given prescription for pain medication. She advised to follow-up with orthopedics for recheck. She is advised to return if worse. She is advised that she may need MRI if symptoms persist. This medical record is generated with [employer] rehab aide software. There may be some rehab aide discrepancies related to use of this software Last Vital Signs Date Time Temp Pulse Resp B/P (MAP) Pulse Ox O2 Delivery O2 Flow Rate FiO2 08/24/20 20:53 98.1 88 18 96/63 (74) 99 Room Air Status: improved Disposition: HOME, SELF-CARE Condition: Stable Scripts Hydrocodone Bit/Acetaminophen 5-325* (NORCO 5-325 TABLET*) 1 Each Tablet 1 TAB ORAL Q6H PRN for FOR PAIN, #12 TAB 0 Refills Prov: Ariel Victor MD 08/24/20 Ariel Victor MD Aug 24, 2020 21:02
[2020-08-24] MEDS ORDERED: FERROUS SULFAT325 MG ORAL (21:04)
[2020-08-24] MEDS ORDERED: IBUPROFEN600 M1 ORAL (21:04)
[2020-08-24] MEDS ORDERED: FOLIC ACID1 MG ORAL (21:04)
--- NOTE | 2020-08-24 21:10 | NUR ---
ED Nurse Note: xray at bedside
[2020-08-24 21:20] VITALS: BP 96/63
--- NOTE | 2020-08-24 21:38 | Diagnostic Imaging Report ---
EXAM: XR Right Wrist, 2 Views CLINICAL HISTORY: PAIN TECHNIQUE: Frontal and lateral views of the right wrist. COMPARISON: No relevant prior studies available. Findings/impression: Bones/joints: No acute fracture or dislocation. Remodeling of the scaphoid bone, possibly secondary to old fracture. Severe radiocarpal osteoarthritis, and pancarpal joint space narrowing and degeneration. Overall, findings appear chronic and may be secondary to prior trauma, infection or underlying arthropathy. Soft tissues: No evidence of soft tissue edema. No radiopaque foreign body.
[2020-08-24] MEDS ORDERED: NORCO 5-325 TA1 EAC1 ORAL (21:50)
--- NOTE | 2020-08-24 21:53 | NUR ---
ED Nurse Note: colles Splint applied
[2020-08-24 22:00] VITALS: BP 96/63
== END 2020-08-24 22:00 | disposition home or self-care (01) ==
LOC: EMR 21:06
DX: M25.531 Pain in right wrist (principal); Z88.5 Allergy status to narcotic agent; Z91.040 Latex allergy status; W01.0XXA Fall on same level from slipping, tripping and stumbling without subsequent striking against object, initial encounter; Y93.9 Activity, unspecified; Y92.9 Unspecified place or not applicable
CPT/HCPCS: 73110; Z7502; 99283

== ENCOUNTER 2020-09-26 10:40 | Emergency (ER) | payer MEDICAID ==
[~2020-09-26] VITALS: Ht 177.8 cm; Wt 81.6 kg
[~2020-09-26 10:40] MED LIST changes: +FERROUS SULFAT325 MG ORAL; +FOLIC ACID1 MG ORAL; +IBUPROFEN600 M1 ORAL; +METHOTREXATE2.5 MG PO; +PREDNISONE10 MG ORAL
--- NOTE | 2020-09-26 10:53 | NUR ---
ED Nurse Note: pt presents to ED c/o bilat hand and feet px from rheumatoid arthritis. pt states that she thinks the arthritis is flaring up, pain onset was 0500 today. 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 pt states she did not have any ibuprofen at home to take.
[2020-09-26 10:55] VITALS: BP 99/57
[2020-09-26] MEDS ORDERED: NORCO 5-325 TA1 EAC1 ORAL (11:07)
[2020-09-26] MEDS ORDERED: PREDNISONE20 MG ORAL (11:07)
[2020-09-26] MEDS ORDERED: IBUPROFEN600 M1 ORAL (11:07)
[2020-09-26] MEDS ORDERED: HYDROcodone/Acetamin 5/325 tab ORAL ONE (11:15)
[2020-09-26] MEDS ORDERED: Ketorolac 30mg Inj IM ONE (11:15)
[2020-09-26 11:17] VITALS: BP 99/57
--- NOTE | 2020-09-26 11:17 | NUR ---
ER DISCHARGE NOTE: Patient is cleared to be discharged per ERMD, pt is aox4, on room air, with stable vital signs. pt was given dc and prescription instructions, pt was able to verbalize understanding, pt id band removed without complications. pt is able to ambulate with steady gait. pt took all belongings.
--- NOTE | 2020-09-27 16:23 | Emergency Room Report ---
History of Present Illness General Chief Complaint: Pain Source: Patient Present Illness HPI 30-year-old female presents for evaluation. History of rheumatoid arthritis. Has swelling to her left wrist. States she gets flares at times. Responds well to pain medications and steroids. Pain is throbbing, 10 out of 10, nonradiating. Denies any fall or injury. No other aggravating relieving factors. Denies any other associated symptoms Allergies: Coded Allergies: CODEINE (Verified Allergy, Unknown, 01/29/17) LATEX (Verified Allergy, Unknown, 06/13/19) COVID-19 Screening Contact w/high risk pt: No Experienced COVID-19 symptoms?: No COVID-19 Testing performed DINKEY BRAKEMAN: No Patient History Past Medical History: other - RA Past Surgical History: none Pertinent Family History: none Social History: Denies: smoking, alcohol use, drug use Last Menstrual Period: 09/17/19 Now: No Immunizations: UTD Reviewed Nursing Documentation: PMH: Agreed; PSxH: Agreed Nursing Documentation-PMH Hx Gastrointestinal Problems: Yes Review of Systems All Other Systems: negative except mentioned in HPI Physical Exam Vital Signs Date Time Temp Pulse Resp B/P (MAP) Pulse Ox O2 Delivery O2 Flow Rate FiO2 09/26/20 10:44 98.4 72 19 99/57 (71) 98 Room Air Sp02 EP Interpretation: reviewed, normal General Appearance: no apparent distress, alert, GCS 15, non-toxic Head: normocephalic, atraumatic Eyes: bilateral eye normal inspection, bilateral eye PERRL ENT: hearing grossly normal, normal pharynx, no angioedema, normal voice Neck: full range of motion, supple/symm/no masses Respiratory: chest non-tender, lungs clear, normal breath sounds, speaking full sentences Cardiovascular #1: regular rate, rhythm, no edema Cardiovascular #2: 2+ carotid (R), 2+ carotid (L), 2+ radial (R), 2+ radial (L), 2+ dorsalis pedis (R), 2+ dorsalis pedis (L) Gastrointestinal: normal bowel sounds, non tender, soft, non-distended, no guarding, no rebound Rectal: deferred Genitourinary: normal inspection, no CVA tenderness Musculoskeletal: back normal, normal range of motion, gait/station normal, swelling - L wrist Neurologic: alert, motor strength/tone normal, oriented x3, sensory intact, responsive, speech normal Psychiatric: judgement/insight normal, memory normal, mood/affect normal, no suicidal/homicidal ideation Reflexes: 3+ bicep (R), 3+ bicep (L), 3+ tricep (R), 3+ tricep (L), 3+ knee (R), 3+ knee (L) Lymphatic: no adenopathy Medical Decision Making Diagnostic Impression: Primary Impression: Rheumatoid arthritis flare ER Course Hospital Course 30-year-old female presents with left wrist swelling. History of rheumatoid Differential diagnoses include: Fracture, dislocation, sprain, contusion, bursitis Clinical course Patient placed on stretcher. After initial history, physical exam reveals a female in no acute distress. There is some tenderness swelling to the left wrist. Afebrile, nontoxic-appearing. Given pain meds and prednisone in ED. Will discharge home with medications. Safe for discharge with close outpatient follow-up Diagnosis - rheumatoid arthritis flare stable and discharged to home with prescription for prednisone, norco, motrin. Followup with PMD. Return to ED if symptoms recur or worsen Last Vital Signs Date Time Temp Pulse Resp B/P (MAP) Pulse Ox O2 Delivery O2 Flow Rate FiO2 09/26/20 11:17 98.4 19 99/57 98 Room Air 09/26/20 10:44 72 Status: improved Disposition: HOME, SELF-CARE Condition: Improved Scripts Prednisone* (PREDNISONE*) 20 Mg Tablet 40 MG ORAL DAILY, #10 TAB Prov: Wade Altamirano MD 09/26/20 Ibuprofen* (MOTRIN*) 600 Mg Tablet 600 MG ORAL Q8H PRN for FOR PAIN, #30 TAB 0 Refills Prov: Wade Altamirano MD 09/26/20 Hydrocodone Bit/Acetaminophen 5-325* (NORCO 5-325 TABLET*) 1 Each Tablet 1 TAB ORAL Q6H PRN for FOR PAIN, #10 TAB 0 Refills Prov: Wade Altamirano MD 09/26/20 Referrals: NOT CHOSEN IPA/,REFERRING (PCP) Patient Instructions: Rheumatoid Arthritis, [id number] Wade Altamirano MD Sep 27, 2020 16:23
== END 2020-09-26 11:17 | disposition home or self-care (01) ==
LOC: EMR 10:59
DX: M06.9 Rheumatoid arthritis, unspecified (principal); Z88.5 Allergy status to narcotic agent; Z91.040 Latex allergy status
CPT/HCPCS: 96372; 99282

== ENCOUNTER 2020-12-02 04:06 | Emergency (ER) | payer MEDICAID ==
[~2020-12-02] VITALS: Ht 177.8 cm; Wt 83.9 kg
--- NOTE | 2020-12-02 04:37 | Emergency Room Report ---
History of Present Illness General Chief Complaint: Lower Back Pain or Injury Source: Patient Present Illness HPI Patient presents with lumbar pain that began when she was bending over and pulling something 2 days ago. The pain has been severe and she has had difficulty sleeping. At times it grabs her and it is worsened. Sometimes it radiates up towards her chest. Most the time though it radiates down her right side into her thigh. The pain right now is 10/10. She denies any fevers or chills. She does have history of rheumatoid arthritis. She is not taking methotrexate now. She did take a dose of prednisone recently. Also she is took Tylenol yesterday. She has been urinating more frequently. She has a history of UTIs but does not feel that she has dysuria at the time. She not taking blood thinners. There is no oncologic problems. She denies incontinence. Chronically she has decreased sensation in her feet from her rheumatoid arthritis and also has some pain. She has had a CT done in the past of her body, (was for chest pain) at another hospital ([facility]). Not her spine. Had dx of back pain here with rectal bleeding 06/13/19. History of rheumatoid arthritis. Patient denies exposure to Covid positive contacts No palpitations, nausea, vomiting, diarrhea, abdominal pain, shortness of breath, rashes, depression, anxiety, visual changes, dizziness, headache. Allergies: Coded Allergies: CODEINE (Verified Allergy, Unknown, 01/29/17) LATEX (Verified Allergy, Unknown, 06/13/19) COVID-19 Screening Contact w/high risk pt: No Experienced COVID-19 symptoms?: No COVID-19 Testing performed FIELD AIDE: No Patient History Past Medical History: see triage record, old chart reviewed Social History: Denies: smoking, alcohol use, drug use Social History Narrative at home - disabled Last Menstrual Period: nov 06 Now: No Reviewed Nursing Documentation: PMH: Agreed; PSxH: Agreed Nursing Documentation-PMH Hx Gastrointestinal Problems: Yes Review of Systems All Other Systems: negative except mentioned in HPI Physical Exam Vital Signs Date Time Temp Pulse Resp B/P (MAP) Pulse Ox O2 Delivery O2 Flow Rate FiO2 12/02/20 04:24 97.9 78 18 128/78 (95) 98 Sp02 EP Interpretation: reviewed, normal General Appearance: well appearing, no apparent distress, GCS 15 Head: normocephalic Eyes: bilateral eye normal inspection, bilateral eye PERRL, bilateral eye EOMI ENT: moist mucus membranes Neck: supple Respiratory: lungs clear, normal breath sounds Cardiovascular #1: regular rate, rhythm Cardiovascular #2: 2+ radial (R) Gastrointestinal: normal inspection, normal bowel sounds, non tender, no mass, non-distended Musculoskeletal: no calf tenderness, tender - lumbar area, SLR + R with increased back and R leg pain. SLR left, no cross over. Some muscle spasm R lumbar area Neurologic: alert, DTRs symmetric, oriented x3, sensory intact, motor weakness - bilateral feet (she states this is chronic) Psychiatric: mood/affect normal Reflexes: 2+ tricep (L), 2+ knee (R); 1+ ankle (R), 1+ ankle (L) Skin: no rash, warm/dry Medical Decision Making Diagnostic Impression: Primary Impression: Low back pain Qualified Codes: M54.41 - Lumbago with sciatica, right side Additional Impressions: Rheumatoid arthritis Qualified Codes: M05.771 - Rheumatoid arthritis with rheumatoid factor of right ankle and foot without organ or systems involvement; M05.772 - Rheumatoid arthritis with rheumatoid factor of left ankle and foot without organ or systems involvement Sacroiliac joint disease ER Course Patient presents with 2 days of lower back pain radiating down her right leg. She also has a history of rheumatoid arthritis. Differential includes rheumatoid arthritis flare, UTI, herniated disc, back strain, muscle spasm amongst others. Exam is against fracture. Exam is consistent with sciatica. Urinalysis needs to be checked. Because of the history of rheumatoid arthritis blood work will be obtained. The patient will be treated with Toradol, Percocet and Robaxin. Discussed dx. She wants radiological evaluation. CT ordered as higher risk with RA. Normal WBC. ESR 36. UA clear. Signed out to Dr. Mayes for review of CT. Laboratory Tests Test 12/02/20 04:40 White Blood Count 5.0 K/UL (4.8-10.8) Red Blood Count 3.74 M/UL (4.20-5.40) L Hemoglobin 9.8 G/DL (12.0-16.0) L Hematocrit 31.4 % (37.0-47.0) L Mean Corpuscular Volume 84 FL (80-99) Mean Corpuscular Hemoglobin 26.1 PG (27.0-31.0) L Mean Corpuscular Hemoglobin Concent 31.1 G/DL (32.0-36.0) L Red Cell Distribution Width 16.1 % (11.6-14.8) H Platelet Count 272 K/UL (150-450) Mean Platelet Volume 6.3 FL (6.5-10.1) L Neutrophils (%) (Auto) 57.1 % (45.0-75.0) Lymphocytes (%) (Auto) 32.1 % (20.0-45.0) Monocytes (%) (Auto) 9.4 % (1.0-10.0) Eosinophils (%) (Auto) 0.4 % (0.0-3.0) Basophils (%) (Auto) 1.0 % (0.0-2.0) Erythrocyte Sedimentation Rate 36 MM/HR (0-20) H Urine Color Yellow Urine Appearance Clear Urine pH 6 (4.5-8.0) Urine Specific [place] 1.020 (1.005-1.035) Urine Protein Negative (NEGATIVE) Urine Glucose (UA) Negative (NEGATIVE) Urine Ketones Negative (NEGATIVE) Urine Blood 1+ (NEGATIVE) H Urine Nitrite Negative (NEGATIVE) Urine Bilirubin Negative (NEGATIVE) Urine Urobilinogen 1 MG/DL (0.0-1.0) H Urine Leukocyte Esterase 1+ (NEGATIVE) H Urine RBC 0-2 /HPF (0 - 2) Urine WBC 0-2 /HPF (0 - 2) Urine Squamous Epithelial Cells Few /LPF (NONE/OCC) Urine Bacteria Few /HPF (NONE) Sodium Level 140 MMOL/L (136-145) Potassium Level 4.0 MMOL/L (3.5-5.1) Chloride Level 107 MMOL/L (98-107) Carbon Dioxide Level 27 MMOL/L (21-32) Anion Gap 6 mmol/L (5-15) Blood Urea Nitrogen 9 mg/dL (7-18) Creatinine 0.8 MG/DL (0.55-1.30) Estimated Glomerular Filtration Rate > 60 mL/min (>60) Glucose Level 101 MG/DL (74-106) Calcium Level 8.8 MG/DL (8.5-10.1) Total Bilirubin 0.3 MG/DL (0.2-1.0) Aspartate Amino Transferase (AST) 26 U/L (15-37) Alanine Aminotransferase (ALT) 36 U/L (12-78) Alkaline Phosphatase 112 U/L (46-116) Total Protein 7.5 G/DL (6.4-8.2) Albumin 3.6 G/DL (3.4-5.0) Globulin 3.9 g/dL Albumin/Globulin Ratio 0.9 (1.0-2.7) L Human Chorionic Gonadotropin, Quant < 1 mIU/mL (1-6) L CT/MRI/US Diagnostic Results CT/MRI/US Diagnostic Results : Imaging Test Ordered: CT lumbar spine Impression No lumbar spine fracture. No high-grade spinal canal or foraminal stenosis. Degenerative changes of the right sacroiliac joint. Cholelithiasis. Diverticulosis, without acute diverticulitis. Trace free fluid in the pelvis, likely physiologic. Last Vital Signs Date Time Temp Pulse Resp B/P (MAP) Pulse Ox O2 Delivery O2 Flow Rate FiO2 12/02/20 05:23 98.2 77 17 132/82 99 Room Air Status: improved Reevaluation Impression CT reviewed after patient discharged. Of not SI joint DJD on right. Could be cause of pain. Disposition: HOME, SELF-CARE Condition: Improved Scripts Hydrocodone/Acetaminophen 5-325* (HYDROCODONE/ACETAMINOPHEN 5-325*) 1 Each Tablet 1 TAB ORAL Q6H PRN for For Pain, #8 TAB 0 Refills Prov: Austin Foy MD 12/02/20 Methocarbamol* (ROBAXIN-500*) 500 Mg Tablet 500 MG ORAL TID PRN for muscle spasms, #10 TAB 0 Refills Prov: Austin Foy MD 12/02/20 Ibuprofen* (MOTRIN*) 600 Mg Tablet 600 MG ORAL Q6H PRN for FOR PAIN, #20 TAB 0 Refills Prov: Austin Foy MD 12/02/20 Austin Foy MD Dec 02, 2020 04:37
--- NOTE | 2020-12-02 04:41 | NUR ---
Patient arrived to ER via ambulatory c/o back pain since 2 days , pte rates the pain 10/10. no radiation no others symptoms associated.she was picking up a heavey object and she felt the pain. Patient has a history of RA . Family member accompanied the patient . New orders received from EDP and carried out. All procedures were explain to the patient. Patient verbalized understanding. Safety and comfort measures taken: bed set in low position, frequent rounds, call light within reach. Will continue monitoring the patient during the sift.
[2020-12-02] MEDS ORDERED: oxyCODONE HCL/Acetaminophen 5/325mg ORAL ONE (05:00)
[2020-12-02] MEDS ORDERED: Ketorolac 30mg Inj IV ONE (05:00)
[2020-12-02] MEDS ORDERED: Acetaminophen 500mg (ES) tab ORAL ONE (05:05)
[2020-12-02 05:07] LABS: EOSINOPHILS % (AUTO) 0.4 % (0.0-3.0); HEMATOCRIT 31.4 % (37.0-47.0); HEMOGLOBIN 9.8 G/DL (12.0-16.0); LYMPHOCYTES % (AUTO) 32.1 % (20.0-45.0); MEAN CORPUSCULAR VOLUME 84 FL (80-99); MONOCYTES % (AUTO) 9.4 % (1.0-10.0); NEUTROPHILS % (AUTO) 57.1 % (45.0-75.0); PLATELET COUNT 272 K/UL (150-450); RED BLOOD COUNT 3.74 M/UL (4.20-5.40); RED CELL DISTRIBUTION WIDTH 16.1 % (11.6-14.8)
[2020-12-02 05:11] LABS: APPEARANCE,URINE CLEAR; BILIRUBIN, URINE NEGATIVE (NEGATIVE); GLUCOSE, URINE (UA) NEGATIVE (NEGATIVE); KETONES,URINE NEGATIVE (NEGATIVE); LEUKOCYTE ESTERASE ,URINE 1+ (NEGATIVE); NITRITE,URINE NEGATIVE (NEGATIVE); PH,URINE 6 (4.5-8.0); PROTEIN,URINE NEGATIVE (NEGATIVE); UROBILINOGEN,URINE 1 MG/DL (0.0-1.0)
[2020-12-02] MEDS ORDERED: Methocarbamol 500mg tab ORAL ONE (05:15)
[2020-12-02 05:17] LABS: ANION GAP 6 mmol/L (5-15); BLOOD UREA NITROGEN 9 mg/dL (7-18); CALCIUM 8.8 MG/DL (8.5-10.1); CARBON DIOXIDE 27 MMOL/L (21-32); CHLORIDE 107 MMOL/L (98-107); CREATININE 0.8 MG/DL (0.55-1.30); SODIUM 140 MMOL/L (136-145)
[2020-12-02 05:19] LABS: COLOR,URINE YELLOW
[2020-12-02 05:23] VITALS: BP 132/82
[2020-12-02 05:27] LABS: ALANINE AMINOTRANSFERASE 36 U/L (12-78); ALBUMIN 3.6 G/DL (3.4-5.0); ALBUMIN/GLOBULIN RATIO 0.9 (1.0-2.7); ALKALINE PHOSPHATASE 112 U/L (46-116); ASPARTATE AMINO TRANSFERASE 26 U/L (15-37); BILIRUBIN,TOTAL 0.3 MG/DL (0.2-1.0)
[2020-12-02] MEDS ORDERED: ROBAXIN-500MG ORAL (05:39)
[2020-12-02] MEDS ORDERED: HYDROCODON-ACE1 EA15 ORAL (05:39)
[2020-12-02] MEDS ORDERED: IBUPROFEN600 M1 ORAL (05:39)
--- NOTE | 2020-12-02 05:43 | NUR ---
Patient in bed in comfortable position and stable condition. All vitals signs were taken within normal range. Urine and blood were collected and sent them to the lab. All medications were administered without adverse reaction. Patient continuous attached to the monitor.
--- NOTE | 2020-12-02 07:42 | Diagnostic Imaging Report ---
EXAM: CT Lumbar Spine Without Intravenous Contrast CLINICAL HISTORY: PAIN TECHNIQUE: Axial computed tomography images of the lumbar spine without intravenous contrast. CTDI is 11.8 mGy and DLP is 515.3 mGy-cm. One or more of the following dose reduction techniques were used: automated exposure control, adjustment of the mA and/or kV according to patient size, use of iterative reconstruction technique. COMPARISON: No relevant prior studies available. FINDINGS: The vertebral body heights are maintained. The lumbar lordosis is preserved. There is no spondylolisthesis. The posterior elements are maintained, without evidence of acute fracture. The pedicles are intact. There is no spinal canal or foraminal stenosis. Cholelithiasis. Diverticulosis, without acute diverticulitis. Trace free fluid in the pelvis, likely physiologic. Degenerative changes of the right sacroiliac joint. IMPRESSION: No lumbar spine fracture. No high-grade spinal canal or foraminal stenosis. Degenerative changes of the right sacroiliac joint. Cholelithiasis. Diverticulosis, without acute diverticulitis. Trace free fluid in the pelvis, likely physiologic.
== END 2020-12-02 07:46 | disposition home or self-care (01) ==
LOC: EMR 04:37
DX: M54.41 Lumbago with sciatica, right side (principal); M05.771 Rheumatoid arthritis with rheumatoid factor of right ankle and foot without organ or systems involvement; M05.772 Rheumatoid arthritis with rheumatoid factor of left ankle and foot without organ or systems involvement; M53.3 Sacrococcygeal disorders, not elsewhere classified; Z88.6 Allergy status to analgesic agent; Z91.040 Latex allergy status; K80.20 Calculus of gallbladder without cholecystitis without obstruction; K57.90 Diverticulosis of intestine, part unspecified, without perforation or abscess without bleeding
CPT/HCPCS: 36415; 72131; 80053; 81003; 84702; 85025; 85651; 96374; J1885; Z7502; 99284